=== PATIENT | female | born 1960 | race Two or more races ===

== ENCOUNTER 2017-07-27 19:33 | Observation (INO) | payer BC ==
[~2017-07-27] VITALS: Ht 154.9 cm; Wt 73.3 kg
[~2017-07-27 19:33] MED LIST: MECLIZINE HCL25 MG PO; VALIUM5 MG PO; ZOFRAN ODT4 MG PO
[2017-07-27 19:56] LABS: HEMATOCRIT 42.8 % (36.0-46.0); MCH 28.8 PG (29.0-34.0); MCV 89.9 FL (83-99); MEAN PLAT.VOLUME 10.2 uM^3 (9.5-12.4); PLATELET COUNT 244 K/uL (156-360); RBC DIS.WIDTH-SD 43.1 % (39-53); RED BLOOD COUNT 4.76 M/uL (3.80-5.20); WHITE BLOOD COUNT 6.5 K/uL (4.1-10.2)
[2017-07-27 20:09] LABS: CHLORIDE 104 mEq/L (99-109); POTASSIUM 3.7 mEq/L (3.7-5.4); SODIUM 139 mEq/L (136-147)
[2017-07-27 20:11] LABS: GLUCOSE 98 mg/dL (70-99)
[2017-07-27 20:12] LABS: ANION GAP 7 MEQ/L (2-14)
[2017-07-27 20:14] LABS: GFR ESTIMATE (CALCULATED) > 59 mL/min/
[2017-07-27 20:15] LABS: UREA NITROGEN (BUN) 23 mg/dL (9-23)
[2017-07-27 20:21] LABS: TROP-I INTERPRETATION NEGATIVE; TROPONIN-I < 0.01 ng/mL (0.0-0.30)
[2017-07-27 20:37] LABS: MAGNESIUM 2.3 mg/dL (1.3-2.7)
[2017-07-27] MEDS ORDERED: LISINOPRIL10 MG PO (21:05)
[2017-07-27] MEDS ORDERED: NORTRIPTYLINE H25 MG PO (21:06)
[2017-07-28 00:52] VITALS: BP 165/77
[2017-07-28 02:41] LABS: TROP-I INTERPRETATION NEGATIVE; TROPONIN-I < 0.01 ng/mL (0.0-0.30)
[2017-07-28 04:27] VITALS: BP 142/82
[2017-07-28 08:30] VITALS: BP 165/84
[2017-07-28 09:28] LABS: TROP-I INTERPRETATION NEGATIVE; TROPONIN-I < 0.01 ng/mL (0.0-0.30)
[2017-07-28 11:51] VITALS: BP 137/66
[2017-07-28] MEDS ORDERED: AMLODIPINE BESYL5 MG PO (14:13)
[2017-07-28 15:29] VITALS: BP 124/70
== END 2017-07-28 16:32 | disposition home or self-care (01) ==
LOC: EME 19:33 → EDOF 23:17 → ENRESERV 23:24 → 5WEST 07-28 00:41
PROVIDERS: Hospitalist
DX: R00.2 Palpitations (principal); I10 Essential (primary) hypertension; G43.909 Migraine, unspecified, not intractable, without status migrainosus; R42 Dizziness and giddiness; R53.1 Weakness; Z82.49 Family history of ischemic heart disease and other diseases of the circulatory system; R07.9 Chest pain, unspecified
CPT/HCPCS: 71020; 80048; 83735; 84443; 84484; 85027; 93005; 99281; 99285; G0378

== ENCOUNTER 2018-02-23 21:19 | Emergency (ER) | payer OTHER ==
[~2018-02-23] VITALS: Ht 154.9 cm; Wt 73.3 kg
[~2018-02-23 21:19] MED LIST changes: +AMLODIPINE BESYL5 MG PO; +LISINOPRIL10 MG PO; +NORTRIPTYLINE H25 MG PO
[2018-02-23 21:56] LABS: HEMATOCRIT 42.6 % (36.0-46.0); HEMOGLOBIN 13.8 G/DL (11.9-15.5); MCH 29.3 PG (29.0-34.0); MCHC 32.4 G/DL (30.0-36.0); MCV 90.4 FL (83-99); PLATELET COUNT 260 K/uL (156-360); RBC DIS.WIDTH-CV 13.1 % (11.8-14.6); RBC DIS.WIDTH-SD 43.3 % (39-53); RED BLOOD COUNT 4.71 M/uL (3.80-5.20); WHITE BLOOD COUNT 7.3 K/uL (4.1-10.2)
[2018-02-23 22:07] LABS: CHLORIDE 102 mEq/L (99-109); POTASSIUM 4.1 mEq/L (3.7-5.4); SODIUM 138 mEq/L (136-147)
[2018-02-23 22:08] LABS: GLUCOSE 110 mg/dL (70-99)
[2018-02-23 22:12] LABS: CREATININE 0.8 mg/dL (0.6-1.3); GFR ESTIMATE (CALCULATED) > 59 mL/min/
[2018-02-23 22:13] LABS: UREA NITROGEN (BUN) 14 mg/dL (9-23)
[2018-02-23 22:34] LABS: APPEARANCE CLEAR ((CLEAR)); BILIRUBIN NEGATIVE; BLOOD NEGATIVE; COLOR COLORLESS ((YELLOW)); GLUCOSE (STRIP) NEGATIVE; KETONES NEGATIVE; LEUKOCYTES SMALL; NITRITE NEGATIVE; PROTEIN (STRIP) NEGATIVE; SPECIFIC GRAVITY 1.003 (1.000-1.030); UROBILINOGEN 0.2 MG/DL (0.2-1.0)
[2018-02-23 22:42] LABS: BACTERIA NONE SEEN /HPF; EPITHELIAL CELLS 1+ /HPF; MUCUS TRACE /LPF; RED BLOOD CELLS 0-5 /HPF (0-5); UCUL ADDED? NO; WHITE BLOOD CELLS 0-5 /HPF (0-5)
[2018-02-24] MEDS ORDERED: CIPRO500 MG PO (00:34)
[2018-02-24 00:48] VITALS: BP 140/74
== END 2018-02-24 00:50 | disposition home or self-care (01) ==
LOC: EME 21:19 → EXP 21:19
DX: R30.0 Dysuria (principal); R35.0 Frequency of micturition; I10 Essential (primary) hypertension; Z87.440 Personal history of urinary (tract) infections
CPT/HCPCS: 74176; 80048; 81003; 85027; 87086; 99281; 99284